=== PATIENT | female | born 1965 | race Caucasian/White ===

== ENCOUNTER → 2018-01-09 | Outpatient (CLI) | payer MEDICARE, OTHER ==
--- NOTE | 2018-01-09 08:43 | RADIOLOGY REPORT (SQ) ---
EXAM DESCRIPTION: MRI THORACIC SPINE WITHOUT COMPLETED DATE/TIME: 01/09/2018 7:57 am REASON FOR STUDY: CHEST WALL PAIN (R07.89), RADICULAR PAIN (M54.10) R07.89 OTHER CHEST PAIN M54.10 RADICULOPATHY, SITE UNSPECIFIED COMPARISON: None. TECHNIQUE: Sagittal and Axial imaging includes T1, T2, STIR and gradient echo sequences. LIMITATIONS: None. FINDINGS: LOCALIZER: No worrisome findings. ALIGNMENT: Normal. VERTEBRAE: Intact. BONE MARROW: Multilevel reactive endplate changes. HARDWARE: None in the spine. CORD: Normal in size and signal intensity. SOFT TISSUES: No soft tissue masses. THORACIC DISCS T1-T12: There is diffuse degenerative disc disease with loss of height and T2 signal. Multilevel small disc bulges most prominent at T2-3, T3-4, T8-9, T9-10, T10-11. . At T10-11 and T11-12 there is posterior element overgrowth with mild spinal stenosis. At T12-L1 there is a left pa racentral disc protrusion with leftward flattening of the thecal sac but no narrowing of the exit for stephon. LOWER CERVICAL: Surgical changes. UPPER LUMBAR: Degenerative disc disease. OTHER: No other significant finding. IMPRESSION: Multilevel spondylosis with diffuse degenerative disc disease and disc bulge. In the lo wer thoracic spine there is some posterior element overgrowth with mild spinal stenosis. No dominant disc extrusion or protrusion. TECHNICAL DOCUMENTATION: JOB ID: [id number] [employer]- All Rights Reserved Reading location - IP/workstation name: [email or web address]
== END ==
LOC: RAD 06:59
PROVIDERS: ATTEND Family Medicine
DX: R07.89 Other chest pain (principal); M51.16 Intervertebral disc disorders with radiculopathy, lumbar region
CPT/HCPCS: 72146

== ENCOUNTER 2018-03-11 09:49 | Emergency (ER) | payer MEDICARE, OTHER ==
--- NOTE | 2018-03-11 10:29 | ER Document Report ---
ED General - General Chief Complaint: Back Pain Stated Complaint: BACK PAIN Time Seen by Provider: 03/11/18 10:29 Notes: Patient is a 52-year-old female with chronic back pain that presents to the emergency department for chief complaint of back pain. Patient states that her chronic upper back pain on the left scapula has flared up over the last few days. And her typical medications she takes such as oxycodone, Lidoderm patches , and Flexeril have not been helping so she decided to come to the emergency department. She states she has been having difficulty sleeping because of the pain, particularly over the last 2 nights. She is managed by pain management, which prescribes her other medications. She describes the pain as a sharp stabbing-like sensation in the left scapular region, which is typical of her pain, and has not changed just only worse today. She denies having any chest pain, shortness of breath, nausea, vomiting, fevers, chills, cough, abdominal pain, dysuria or hematuria. Past Medical History: Chronic back pain, hyperlipidemia, hypothyroidism Past Surgical History: Cervical fusion, low back surgery, partial thyroidectomy Social History: Admits to smoking cigarettes daily, denies illicit drug use, admits to occasional alcohol use Family History: Reviewed and noncontributory for presenting illness Allergies: Reviewed, see documented allergy list. REVIEW OF SYSTEMS: Unless otherwise stated in this report the patient's positive and negative responses for review of systems for constitutional, eyes, ENT, cardiovascular, respiratory, gastrointestinal, neurological, genitourinary, musculoskeletal, and integumentary systems and related systems to the presenting problem are either as stated in the HPI or were not pertinent or were negative for the symptoms and/or complaints related to the presenting medical problem. PHYSICAL EXAMINATION: Vital signs reviewed, nursing noted reviewed. GENERAL: Well-appearing, well-nourished and in no acute distress. HEAD: Atraumatic, normocephalic. EYES: Eyes appear normal, extraocular movements intact, sclera anicteric, conjunctiva are normal. ENT: nares patent, oropharynx clear without exudates. Moist mucous membranes. NECK: Normal range of motion, supple without lymphadenopathy LUNGS: Breath sounds clear to auscultation bilaterally and equal. No wheezes rales or rhonchi. HEART: Regular rate and rhythm without murmurs ABDOMEN: Soft, nontender, normoactive bowel sounds. No rebound, guarding, or rigidity. No masses appreciated. EXTREMITIES: Nontender, good range of motion, no pitting or edema. Back: Tenderness with palpation over the ribs along the area of the left scapula , this is reproducible and similar to the pain she is describing. No midline tenderness of the thoracic or lumbar spine. NEUROLOGICAL: No focal neurological deficits. Moves all extremities spontaneously Motor and sensory grossly intact on exam. PSYCH: Normal mood, normal affect. SKIN: Warm, Dry, normal turgor, no rashes or lesions noted on exposed skin TRAVEL OUTSIDE OF THE [place] IN LAST 30 DAYS: No - Related Data Allergies/Adverse Reactions: Penicillins Allergy (Verified 03/11/18 09:53) morphine [Morphine] Adverse Reaction (Verified 03/11/18 09:53) Past Medical History - Social History Smoking Status: Current Every Day Smoker Frequency of alcohol use: Occasional Drug Abuse: None Family History: Reviewed & Not Pertinent Patient has suicidal ideation: No Patient has homicidal ideation: No Pulmonary Medical History: Denies: Hx Tuberculosis Endocrine Medical History: Reports: Hx Hypothyroidism Renal/ Medical History: Denies: Hx Peritoneal Dialysis Musculoskeletal Medical History: Reports Hx Arthritis Psychiatric Medical History: Reports: Hx Depression Past Surgical History: Reports: Hx Appendectomy, Hx Orthopedic Surgery - c3-c4 fusion, hip replacement bilateral, Hx Thyroid Surgery - partial thyroidectomy - Immunizations Hx Diphtheria, Pertussis, Tetanus Vaccination: Yes Hx Pneumococcal Vaccination: 06/16/04 Physical Exam - Vital signs Vitals: Temp Pulse Resp BP Pulse Ox 98.4 F 78 18 175/104 H 97 03/11/18 09:57 03/11/18 09:57 03/11/18 09:57 03/11/18 09:57 03/11/18 09:57 Course - Re-evaluation Re-evalutation: Patient seen and examined vital signs reviewed. Patint was evaluated and treated as appropriate for the patient's presenting symptoms and complaint, with consideration of any critical or life threatening conditions that may be associated with their obtained history and exam as noted above. Patient was treated with IM Nubain, and IM Toradol The patient was re-evaluated and was still complaining of pain, I then asked her what has helped her pain in the past, and then she mentioned Dilaudid, and stated that we can give her a small dose of this as an IM injection, but no further opiate medications will be prescribed, patient understood this. Evaluation was most consistent with acute on chronic back pain, plan to have her follow-up with pain management Plan of care was discussed with the patient at this point, after careful consideration I feel that that patient can be discharged from the emergency department, the patient was educated treatments and reasons to return to the emergency department based on their presumed diagnosis as noted above, they were advised to followup with a primary care physician in 2-3 days. Patient was agreeable to plan of care. *Note is created using voice recognition software and may contain spelling, syntax or grammatical errors. - Vital Signs Vital signs: Temp Pulse Resp BP Pulse Ox 98.3 F 71 18 176/115 H 100 03/11/18 11:33 03/11/18 11:33 03/11/18 09:57 03/11/18 11:33 03/11/18 11:33 Discharge - Discharge Clinical Impression: Back pain Qualifiers: Back pain location: thoracic back pain Chronicity: chronic Back pain laterality : left Qualified Code(s): M54.6 - Pain in thoracic spine Condition: Stable Disposition: HOME, SELF-CARE Instructions: Chronic Back Pain ([facility]) Additional Instructions: Please return to the emergency department if you have any worsening, or concern of your symptoms. Please return to the emergency department if you develop chest pain, difficulty breathing, severe abdominal pain, or ongoing vomiting. Please follow-up with your primary care physician in 2-3 days and any other recommended physicians. If prescribed, take all medications as directed. If you have any questions or concerns do not hesitate to return the emergency department for evaluation. Referrals: JAY PUTNAM MD [Primary Care Provider] - Follow up in 3-5 days
[2018-03-11] MEDS ORDERED: NALBUPHINE HCL INJ 10 MG/1 ML AMPULE IM ONE (10:47)
[2018-03-11] MEDS ORDERED: KETOROLAC TROMETHAMINE 60 MG/2 ML SDV IM ONE (10:48)
[2018-03-11] MEDS ORDERED: HYDROMORPHONE HCL INJ/PF 2 MG/ML AMPULE IM ONE (11:19)
[2018-03-11 11:34] VITALS: BP 176/115
== END 2018-03-11 11:54 | disposition home or self-care (01) ==
LOC: ER 09:49
DX: M54.6 Pain in thoracic spine (principal); G89.29 Other chronic pain; E03.9 Hypothyroidism, unspecified; F17.200 Nicotine dependence, unspecified, uncomplicated; Z96.643 Presence of artificial hip joint, bilateral; Z98.1 Arthrodesis status; Z88.0 Allergy status to penicillin; Z88.6 Allergy status to analgesic agent
CPT/HCPCS: 99283; 96372; J1885; J2300; J1170